=== PATIENT | female | born 1980 | race Caucasian/White ===

== ENCOUNTER 2017-07-20 16:11 | Emergency (ER) | payer OTHER ==
[2017-07-20 16:24] VITALS: RESP 18; TEMP 97.7
--- NOTE | 2017-07-20 16:28 | EDPHY ---
H & P Stated Complaint: RLQ abd pain, N/V - Medical/Surgical History Hx Asthma: No Hx Chronic Respiratory Disease: No Hx Diabetes: No Hx Cardiac Disease: No Hx Renal Disease: No Hx Cirrhosis: No Hx Alcoholism: No Hx HIV/AIDS: No Other PMH: hysterectomy november 19 2015 due to infection - Social History Smoking Status: Never smoked Time Seen by Provider: 07/20/17 16:14 HPI/ROS: CHIEF COMPLAINT: Right lower quadrant abdominal pain since this morning HISTORY OF PRESENT ILLNESS: 36-year-old female remote history of partial hysterectomy, arrives by ambulance from work complaining of progressive right lower quadrant abdominal pain which started this morning. Pain unrelieved with ibuprofen 1000 mg. Positive nausea. No vomiting. Bowel movements normal no melena or hematochezia. Last oral intake was at 2:00 p.m. which she tolerated well but does note that she had nausea afterward with no vomiting. No trauma. No fever or chills. No antecedent illness. No urinary abnormality. Last oral intake at 2:00 p.m. today PRIMARY CARE PROVIDER: Darrian REVIEW OF SYSTEMS: A ten point review of systems was performed and is negative with the exception of the items mentioned in the HPI PAST MEDICAL & SURGICAL HISTORY: Partial hysterectomy SOCIAL HISTORY:nonsmoker PHYSICAL EXAM (Prior to examination, patient consented to physical exam, hands were washed and my usual and customary physical exam procedures followed) 1) GENERAL: alert and oriented. Appears to be in no acute distress. 2) HEAD: Normocephalic, atraumatic 3) HEENT: Pupils equal, round, reactive to light bilaterally. Sclera anicteric. Nasopharynx, oropharynx, clear, no lesions. Moist mucous membranes 4) NECK: Full range of motion, no meningeal signs. 5) LUNGS: Clear auscultation bilaterally, no wheezes, no rhonchi, no retractions. 6) HEART: Regular rate and rhythm, no murmur, no heave, no gallop. 7) ABDOMEN: No guarding, tender to palpation right lower quadrant, negative Christiansen's, negative Rovsing's, negative peritoneal sign, 8) MUSCULOSKELETAL: Moving all extremities, no focal areas of tenderness, no obvious trauma. No peripheral edema or discoloration. 9) BACK: No CVA tenderness. 10) SKIN: No rash, no petechiae. 11) Psychiatric: Patient is oriented X 3, there is no agitation. DIFFERENTIAL DIAGNOSIS: My differential diagnosis includes, but is not limited to, acute appendicitis, acute cholecystitis, bowel obstruction, acute pancreatitis, ovarian torsion, ectopic , gastritis and urinary tract infection. The patient understands that this diagnosis is provisional and can never be 100% accurate. This is a partial list of diagnoses considered. These considerations are based on history, physical exam, past history and reassessment. (Cary Eden) Constitutional: Initial Vital Signs Temperature (C) 36.5 C 07/20/17 16:20 Heart Rate 71 07/20/17 16:20 Respiratory Rate 18 07/20/17 16:20 Blood Pressure 117/85 H 07/20/17 16:20 O2 Sat (%) 95 07/20/17 16:20 O2 Delivery Mode Room Air Allergies/Adverse Reactions: No Known Allergies Allergy (Unverified 07/20/17 16:20) Home Medications: Medication Instructions Recorded NK [No Known Home Meds] 07/20/17 Medical Decision Making - Diagnostics Imaging Results: Imaging Impressions Pelvic/Renal Ultrasound 07/20/17 16:24 Impression: 1. Surgically absent uterus. 2. Normal ovaries. 3. Pain predominantly at the suprapubic area during scanning. CT scan as clinically indicated. Findings and recommendations discussed with Cary Eden at 1748 hour, 07/20/2017. Final report concurs with initial preliminary interpretation. Abdomen Ultrasound 07/20/17 16:28 Impression: Nonvisualization of the appendix. Findings and recommendations discussed with Dr. Claudio Cruz at 1748 hour, 2016. Final report concurs with initial preliminary interpretation. ED Course/Re-evaluation: 4:20 p.m.: Discussed the case with secondary supervising physician Dr. Claudio Cruz. Plan will be ultrasound, urine, blood, npo. Last po at 2 pm. 5:00 p.m.: Care turned over to Dr. Cruz (Cary Eden) Other Provider: PHYSICIAN DOCUMENTATION: The patient was evaluated and managed by the Physician Replenishment Buyer and myself. I have reviewed the chart and agree with the findings and plan of care as documented. In addition, I examined the patient myself at 1750. History confirmed as the patient states she has a history of kidney stones but "in my uterus." Patient tells me she had symptoms at 6:30 a.m. this morning with pain in her right flank which then subsequently radiated around to her lower right lower abdomen, she had a lot of urinary urgency but could not actually produce any urine. Symptoms got worse at work and she had nausea and vomiting and presents to the ED now she feels fine. Physical findings as follows: No Christiansen sign, negative for McBurney's point tenderness. No rebound or guarding. 174: Normal ovaries, appendix not visualized, Dr. Srivastava. Plan for urinalysis, if no hematuria and normal white blood cell count, likely renal colic. 183: Labs reviewed include hematuria 50-182 and no pyuria. WBC 8.9. Likely renal colic, discharge with appendicitis precautions. I am the secondary supervising physician. (Claudio Cruz) - Data Points Laboratory Results: Laboratory Results 07/20/17 17:45 07/20/17 17:45 07/20/17 07/20/17 07/20/17 17:45 17:45 17:45 WBC 8.93 10^3/uL 10^3/uL (3.80-9.50) RBC 4.83 10^6/uL 10^6/uL (4.18-5.33) Hgb 14.6 g/dL g/dL (12.6-16.3) Hct 44.4 % % (38.0-47.0) MCV 91.9 fL fL (81.5-99.8) MCH 30.2 pg pg (27.9-34.1) MCHC 32.9 g/dL g/dL (32.4-36.7) RDW 12.0 % % (11.5-15.2) Plt Count 230 10^3/uL 10^3/uL (150-400) MPV 12.0 fL H fL (8.7-11.7) Neut % (Auto) 76.9 % H % (39.3-74.2) Lymph % (Auto) 15.9 % % (15.0-45.0) Grady % (Auto) 5.5 % % (4.5-13.0) Eos % (Auto) 1.1 % % (0.6-7.6) Baso % (Auto) 0.3 % % (0.3-1.7) Nucleat RBC Rel Count 0.0 % % (0.0-0.2) Absolute Neuts (auto) 6.86 10^3/uL H 10^3/uL (1.70-6.50) Absolute Lymphs (auto) 1.42 10^3/uL 10^3/uL (1.00-3.00) Absolute Monos (auto) 0.49 10^3/uL 10^3/uL (0.30-0.80) Absolute Eos (auto) 0.10 10^3/uL 10^3/uL (0.03-0.40) Absolute Basos (auto) 0.03 10^3/uL 10^3/uL (0.02-0.10) Absolute Nucleated RBC 0.00 10^3/uL 10^3/uL (0-0.01) Immature Gran % 0.3 % % (0.0-1.1) Immature Gran # 0.03 10^3/uL 10^3/uL (0.00-0.10) Sodium 143 mEq/L mEq/L (134-144) Potassium 4.1 mEq/L mEq/L (3.5-5.2) Chloride 107 mEq/L mEq/L (97-110) Carbon Dioxide 25 mEq/l mEq/l (22-31) Anion Gap 11 mEq/L mEq/L (8-16) BUN 11 mg/dL mg/dL (7-23) Creatinine 0.7 mg/dL mg/dL (0.6-1.0) Estimated GFR > 60 Glucose 119 mg/dL H mg/dL (70-100) Calcium 9.1 mg/dL mg/dL (8.5-10.4) Lipase 142 IU/L IU/L (23-300) Beta HCG, Qual NEGATIVE Urine Color Urine Appearance Urine pH Ur Specific [place] Urine Protein Urine Ketones Urine Blood Urine Nitrate Urine Bilirubin Urine Urobilinogen Ur Leukocyte Esterase Urine RBC Urine WBC Ur Epithelial Cells Urine Mucus Urine Glucose 07/20/17 17:10 WBC RBC Hgb Hct MCV MCH MCHC RDW Plt Count MPV Neut % (Auto) Lymph % (Auto) Grady % (Auto) Eos % (Auto) Baso % (Auto) Nucleat RBC Rel Count Absolute Neuts (auto) Absolute Lymphs (auto) Absolute Monos (auto) Absolute Eos (auto) Absolute Basos (auto) Absolute Nucleated RBC Immature Gran % Immature Gran # Sodium Potassium Chloride Carbon Dioxide Anion Gap BUN Creatinine Estimated GFR Glucose Calcium Lipase Beta HCG, Qual Urine Color YELLOW Urine Appearance HAZY Urine pH 6.0 (5.0-7.5) Ur Specific [place] 1.027 (1.002-1.030) Urine Protein 1+ H (NEGATIVE) Urine Ketones NEGATIVE (NEGATIVE) Urine Blood 3+ H (NEGATIVE) Urine Nitrate NEGATIVE (NEGATIVE) Urine Bilirubin NEGATIVE (NEGATIVE) Urine Urobilinogen NEGATIVE EU EU (0.2-1.0) Ur Leukocyte Esterase NEGATIVE (NEGATIVE) Urine RBC 50-182 /hpf H /hpf (0-3) Urine WBC 1-3 /hpf /hpf (0-3) Ur Epithelial Cells 1+ /lpf /lpf (NONE-1+) Urine Mucus 2+ /lpf H /lpf (NONE-1+) Urine Glucose NEGATIVE (NEGATIVE) Departure - Departure Disposition: Home, Routine, Self-Care Clinical Impression: Renal colic on right side Condition: Good Instructions: Renal Colic (ED) Additional Instructions: Likely you have a kidney stone with flank pain going to your abdomen and red blood cells in her urine without evidence of infection. You need to return to the emergency department immediately if you develop worsening or severe pain, fever, vomiting or you are not completely better in 8- 12 hours. Referrals: Patient,NotPresent [Unknown] - As per Instructions [facility] ,. [Edm Groups for Call Sched] - As per Instructions
[2017-07-20 18:12] LABS: PLATELET COUNT 230 10^3/uL (150-400)
[2017-07-20 18:56] VITALS: BP 114/77; PULSE 66; O2SAT 100
== END 2017-07-20 18:55 | disposition home or self-care (01) ==
DX: N23 Unspecified renal colic (principal); Z90.710 Acquired absence of both cervix and uterus